=== PATIENT | female | born 1945 | race African-American/Black ===

== ENCOUNTER 2020-06-08 10:22 | Outpatient (CLI) | payer MEDICARE, SELFPAY ==
--- NOTE | ~2020-06-08 | MMUS_ITS ---
EXAMINATION: US breast biopsy RT w image, MM post biopsy invasive RT, US breast bx add lesion RT DATE: 06/08/2020 13:52 (accession [id number]), 06/08/2020 12:32 (accession [id number]), 03/2020 13:53 (accession [id number]) INDICATION: Indeterminate masses at the 12:00 location in the right breast and in the right axilla. U ltrasound-guided core biopsy is requested to evaluate for malignancy. TECHNIQUE AND FINDINGS: The risks and potential benefits of the procedure were discussed with the patient including bleeding and infection. A time out was performed. The skin of the right axilla and right breast was prepared a nd draped in usual sterile fashion. Attention was first directed to the mass at the 12:00 location. 1% lidocaine was used for superficial anesthesia. 1% lidocaine with epinephrine was used for deep anesthesia. A vacuum-assisted biopsy gun needle was advanced through to the outer edge of the region of interest from a lateral approach util izing sonographic guidance. A total of three tissue core samples were obtained through the lesion. A tissue marker clip was then placed at the biopsy site. Attention was then directed to the mass in the right axilla. 1% lidocaine was used for superficial an esthesia. 1% lidocaine with epinephrine was used for deep anesthesia. A vacuum-assisted biopsy gun ne edle was advanced through to the outer edge of the region of interest from an inferior approach utili zing sonographic guidance. The axillary mass was firm making it difficult to pass the 14-gauge needle into or beneath the mass. A total of three tissue core samples were attempted through the lesion. Ne xt, three additional samples were obtained with an 18-gauge core biopsy device. A tissue marker clip was then placed at the biopsy site. Hemostasis was achieved. A sterile bandage was applied. The patient tolerated procedure well and there was no evidence of immediate complication. The patient was given verbal instructions to return to the Emergency Department in the event of severe breast pa in or rapid breast enlargement. A two view right breast mammogram was obtained to document tissue mar ker clip placement. IMPRESSION: 1. Successful ultrasound-guided vacuum-assisted biopsy of right breast and axillary masses with tissu e marker placement. Reviewed, dictated and finalized at location A. IMPRESSION: 1. Successful ultrasound-guided vacuum-assisted biopsy of right breast and axil braulio masses with tissue marker placement. IMPRESSION: 1. Successful ultrasound-guided vacuum-assisted biopsy of right breast and axil braulio masses with tissue marker placement.
== END 2020-06-08 10:23 | disposition home or self-care (01) ==
PROVIDERS: PCP Family Medicine; Visit Provider Surgery
DX: N63.10 Unspecified lump in the right breast, unspecified quadrant (principal); R92.8 Other abnormal and inconclusive findings on diagnostic imaging of breast
CPT/HCPCS: 19083; 19084; 88305; 88342; A4648